=== PATIENT | male | born 1965 | race African-American/Black ===

== ENCOUNTER 2019-05-15 06:39 | Emergency (ER) | payer OTHER ==
[2019-05-15 07:16] LABS: #Basophils 0.1 thou/uL (0.0-0.2); #Eosinphils 0.1 thou/uL (0.0-0.7); #Lymphocytes 1.3 thou/uL (1.20-3.40); #Monocytes 1.2 thou/uL (0.11-0.59); #Neutrophils 5.4 thou/uL (1.40-6.50); %Basophils 0.8 % (0.0-1.0); %Eosinophils 0.7 % (0.0-10.0); %Lymphocytes 15.9 % (21.0-51.0); %Monocytes 14.7 % (0.0-10.0); Hemoglobin 12.6 g/dL (14.0-18.0); Mean Corpuscular HGB CONC 32.5 g/dL (32.0-36.0); Mean Corpuscular Hemoglobin 26.5 pg (27.0-31.0); Mean Corpuscular Volume 81.6 fL (78.0-98.0); Mean Platelet Volume 8.8 fL (7.4-10.4); Platelet Count 214 thou/uL (130-400); RBC Distribution Width 12.2 % (11.5-14.5); Red Blood Cell (RBC) Count 4.73 mill/uL (4.70-6.10)
[2019-05-15 07:35] LABS: ALT (SGPT) 8 U/L (8-55); AST (SGOT) 12 U/L (5-34); Albumin 3.7 g/dL (3.5-5.0); Alkaline Phosphatase 63 U/L (40-110); Anion Gap 12 mmol/L (10-20); BUN (Urea Nitrogen) 15 mg/dL (8.4-25.7); Bilirubin, Total 0.5 mg/dL (0.2-1.2); Calc. Creatinine Clearance 0 mL/min (70-130); Calcium 8.4 mg/dL (7.8-10.44); Carbon Dioxide 25 mmol/L (22-29); Chloride 104 mmol/L (98-107); Estimated GFR-MDRD 50; Globulin 2.9 g/dL (2.4-3.5); Glucose 110 mg/dL (70-105); Potassium 3.5 mmol/L (3.5-5.1); Protein, Total 6.6 g/dL (6.0-8.3); Sodium 137 mmol/L (136-145)
--- NOTE | 2019-05-15 07:51 | RAD ---
Chest AP view INDICATION: Chest pain COMPARISON: None FINDINGS: Lungs:Low lung volumes with bibasilar atelectasis. Cardiac silhouette:The cardiomediastinal silhouette appears within normal limits. Pulmonary vasculature:Normal Pleural spaces:No pleural effusion or pneumothorax is demonstrated. Upper abdomen:No abnormality seen. Osseous structures: No acute osseous abnormality. Additional findings:None. IMPRESSION: Hypoventilation with bilateral lower lobe atelectasis.
--- NOTE | 2019-05-15 10:13 | CT ---
CT ANGIO OF CHEST PERFORMED WITH INTRAVENOUS CONTRAST ENHANCEMENT WITH 3D RECONSTRUCTIONS: HISTORY: Syncope and chest pain. FINDINGS: There are some atelectatic changes in the lung bases with a slightly more confluent parenchymal dorado e in the right lower lobe and in an infrahilar region some air bronchograms. This could indicate a d eveloping infiltrate. There is no significant mediastinal or hilar adenopathy. There are slightly numerous bilateral axillary nodes, but this is not felt to be of any clinical cons equence. The thoracic aorta is normal in caliber. There is good pulmonary artery opacification There is no C T evidence for pulmonary embolus. The visualized liver parenchyma is normal. A small hiatal hernia is noted. Right and left adrenal g lands were partially visualized and unremarkable. IMPRESSION: 1. No Ct evidence for pulmonary embolus. 2. Slightly confluent parenchymal process within the right lower lobe in an infrahilar location sugg esting possibly a developing infiltrate in this region. POS: [facility]
[2019-05-15 10:36] LABS: Troponin I Less than 0.010 ng/mL (< 0.028)
[2019-05-15] MEDS ORDERED: Iopamidol-370 76% 500 ML 1 ML ONE (16:09)
== END 2019-05-15 10:51 ==
LOC: EEVIPCON 06:39 → ERS 06:39
DX: R55 Syncope and collapse (principal); I10 Essential (primary) hypertension; Z79.899 Other long term (current) drug therapy
CPT/HCPCS: 36415; 71045; 71275; 80053; 84484; 85025; 93005; 96360; 96361; Q9967